=== PATIENT | female | born 1935 | race American Indian/Alaskan Native ===

== ENCOUNTER 2017-05-12 09:31 | Day surgery (SDC) | payer MEDICARE ==
[2017-05-12] MEDS ORDERED: NACL 0.9% 1000 ML 1,000 ML IV SCH (10:00)
[2017-05-12] MEDS ORDERED: WATER FOR IRRIG STERILE IR ONE (10:59)
[2017-05-12] MEDS ORDERED: DIPRIVAN 10 MG/ML IV ONE ×3 (11:02→11:43)
--- NOTE | 2017-05-12 11:04 | Short Stay Summary ---
Short Stay Documentation Date of service: 05/12/17 Narrative H&P: 81 year old presents for EGD for evaluation of dysphagia and GERD, and colonoscopy for evaluation of abdominal pain with a personal history of colon polyps. - History Principal diagnosis: dysphagia, GERD, abdominal pain, hx colon polyps Past Medical History: anemia, COPD, diabetes, heart failure, hypertension, stroke, other (required esophageal dilation in past, peptic ulcer, obesity) Past Surgical History: appendectomy, , Other (breast surgery) - Allergies and Medications Current Medications: Allergies ampicillin Allergy (Unverified 05/12/17 09:33) Rash Penicillins Allergy (Unverified 05/12/17 09:32) Hives Sulfa (Sulfonamide Antibiotics) Allergy (Unverified 05/12/17 09:32) Rash codeine Adverse Reaction (Unverified 05/12/17 09:32) Hives latex Adverse Reaction (Unverified 05/12/17 09:32) Hives morphine Adverse Reaction (Unverified 05/12/17 09:33) Hives Home Medications Medication Instructions Recorded Confirmed Last Taken Type Anastrozole (Nf) 1 mg PO DAILY 05/09/17 05/12/17 05/12/17 History AtorvaSTATin 40 mg PO DAILY 05/09/17 05/12/17 05/11/17 History Carvedilol 12.5 mg PO DAILY 05/09/17 05/12/17 05/12/17 History Chlorthalidone 25 mg PO DAILY 05/09/17 05/12/17 05/12/17 History Hydrocodon-Acetaminophn 10-325 1 tab PO PRN PRN 05/09/17 05/09/17 Unknown History Lisinopril 20 mg PO DAILY 05/09/17 05/12/17 05/12/17 History Nortriptyline 10 mg PO DAILY 05/09/17 05/09/17 Unknown History Omeprazole 20 mg PO DAILY 05/09/17 05/09/17 Unknown History Oxybutynin 3.9 mg TRANSDERMA Q4D 05/09/17 05/09/17 Unknown History amLODIPine 10 mg PO DAILY 05/09/17 05/12/17 05/12/17 History hydrALAZINE 50 mg PO DAILY 05/09/17 05/12/17 05/12/17 History traMADol 300 mg PO DAILY 05/09/17 05/09/17 Unknown History Active Medications Sodium Chloride (Nacl 0.9% 1000 Ml) 1,000 mls @ 50 mls/hr IV DIRECT COREY Last Admin: 05/12/17 11:00 Dose: 50 mls/hr - Physical exam General appearance: no acute distress, well-nourished Lungs: Clear to auscultation Heart: Regular rate, Normal S1, Normal S2 Gastrointestinal: normal, obese, other (nontender) Neurological: Normal speech - Hospital course Hospital course: Uneventful EGD with dilation and colonoscopy. - Disposition Condition at discharge: Good Disposition: DC-01 TO HOME OR SELFCARE - Discharge Diagnoses (1) Dysphagia Status: Acute (2) Gastric polyps Status: Acute Comment: polypoid masses, see report (3) Colon polyps Status: Acute (4) Diverticulosis Status: Acute (5) Internal hemorrhoids Status: Acute Short Stay Discharge Plan Activity: other (no driving today) Diet: other (may resume usual diet) Additional Instructions: 1. Patient to call for pathology results in 2 weeks if she has not heard from me by then. 2. First degree relatives (siblings and children) should be informed that colon polyps run in the family and that they should begin their colon screening at age 40 rather than age 50. Follow up with: JARAD MUNOZ MD [Primary Care Provider] - 7 Days
--- NOTE | 2017-05-12 12:02 | Operative Report ---
Operative Report Operative Report: Date of procedure: 05/12/2017 Preprocedure diagnosis: Dysphagia and abdominal pain, personal history colon polyps Post procedure diagnosis: Polypoid gastric masses, colon polyps, diverticulosis coli, angiodysplasia cecum, internal hemorrhoids Procedure name(s): 1. Esophagogastroduodenoscopy with biopsy 2. Esophageal dilation by bougienage 3. Colonoscopy with snare polypectomy Surgeon: Connor Millan MD Anesthesia: Monitored anesthesia care EBL: Less than 1-2 mL Procedure: The indications, techniques, potential complications and alternatives , had been discussed in full detail prior to the date of the exam, and once again on the day of the exam. Questions were encouraged and answered, and consent was thereby obtained. The patient was placed in the left lateral decubitus position, and was medicated by anesthesia services. See the anesthesia records for details. The tip of a [employer] video panendoscope was passed without difficulty through the pharynx and into the esophagus which appeared normal throughout its entire length. There was no evidence of stricture, ring, neoplasm, inflammation or extrinsic compression to account for symptoms of dysphagia. The instrument was advanced into the stomach and air was insufflated. The stomach distended well. The pylorus was patent and there was no retained content. There was a barely raised polypoid possibly submucosal lesion in the distal gastric body along the lesser curvature, and multiple prominent polypoid masses in the prepyloric antrum anteriorly. Both processes appeared grossly benign. See photographs. The instrument was advanced into the duodenum. No pathology was seen in the duodenal bulb or in the post bulbar duodenum to below the level of the ampulla. Retroflexion of the instrument in the stomach disclosed no additional pathology involving the lesser curvature, fundus or cardia. Multiple biopsies were obtained from the polypoid masses in the antrum, and biopsies were obtained from the raised lesion in the distal gastric body. There was no significant bleeding from any biopsy site. The instrument was then withdrawn with repeat examination of the stomach, esophagogastric junction and esophagus. There were no additional findings. A 50 Irish Degroot dilator was then passed empirically in view of symptoms. There was no resistance to dilator passage, and there was no blood on the dilator upon its removal. Both procedures were well tolerated. She was then placed in position for colonoscopy. The anal sphincter was digitally dilated. The digital exam was unremarkable. The tip of a pediatric [employer]in[employer] video colonoscope was inserted through the anal sphincter and into the rectal vault. It was then advanced proximally under continuous visualization of the lumen through a tortuous sigmoid colon but successfully to the cecum without difficulty. The prep was adequate. Along the way to the cecum, ascending millimeters sessile polyp was excised from the hepatic flexure with a cold snare and retrieved. Bleeding was minimal. Once in the cecum, landmarks were identified without difficulty. A small focus of nonbleeding angiodysplasia was noted in the cecum. The cecum otherwise appeared normal. The appendiceal orifice and ileocecal valve were identified and appeared normal. From the cecum, the instrument was slowly withdrawn with careful circumferential examination of the colonic mucosa. No pathology was seen in the ascending colon. Another polyp measuring 3 mm was excised from the hepatic flexure with a cold snare. There was no significant bleeding from the polypectomy site. Withdrawal of the instrument was continued. No pathology was seen in the transverse colon, splenic flexure or descending colon. A few diverticula were noted in the sigmoid. No additional polyps were found. The rectum appeared normal from the forward view. Retroflexion in the rectum revealed internal hemorrhoids. The instrument was fully withdrawn. The procedure was very well tolerated. Postprocedure she was monitored in the recovery area of the GI lab to ensure stability prior to her release. See the outpatient record for details regarding instructions to patient, medications and plans for follow-up. Final diagnosis: 1. 2 sessile polyps, 3 in 7 mm, hepatic flexure 2. Angiodysplasia, cecum, nonbleeding 3. Sigmoid diverticulosis 4. Internal hemorrhoids Connor Millan M.D. Dictated 05/12/2017 at 11:58 AM
[2017-05-12 12:46] VITALS: BP 136/64
--- NOTE | 2017-05-12 15:00 | Anesthesia Consultation ---
Anesthesia Consult and Med Hx Date of service: 05/12/17 - Airway ROM Head & Neck: Adequate Mental/Hyoid Distance: Adequate Mallampati Class: Class II Intubation Access Assessment: Probably Good - Pulmonary Exam CTA: Yes - Cardiac Exam Cardiac Exam: RRR - Pre-Operative Health Status ASA Pre-Surgery Classification: ASA3 Proposed Anesthetic Plan: MAC - Pulmonary COPD: Yes Hx Sleep Apnea: Yes - Cardiovascular System Hx Hypertension: Yes - Central Nervous System CVA: Yes (right sided weakness) - Gastrointestinal Hx Ulcer: Yes - Endocrine Hx Non-Insulin Dependent Diabetes: Yes - Hematic Hx Anemia: Yes - Other Systems Hx Obesity: Yes
--- NOTE | 2017-05-12 15:01 | Anesthesia Day of Surgery ---
Anesthesia Day of Surgery - Day of Surgery Patient Examined: Yes Patient H&P Reviewed: Yes Patient is NPO: Yes
--- NOTE | 2017-05-12 15:01 | Post Anesthesia Evaluation ---
- Post Anesthesia Evaluation Patient Participated: Yes Airway Patent: Yes Stable Respiratory Function: Yes Nausea/Vomiting: No Temp > 96.8F: Yes Pain Manageable: Yes Adequeate Hydration: Yes Anesthesia Complications: No
== END 2017-05-12 09:32 | disposition home or self-care (01) ==
LOC: GIO 09:31
PROVIDERS: ATTEND Internal Medicine Gastroenterology
DX: D12.3 Benign neoplasm of transverse colon (principal); K21.9 Gastro-esophageal reflux disease without esophagitis; K64.8 Other hemorrhoids; K63.5 Polyp of colon; I11.0 Hypertensive heart disease with heart failure; I50.9 Heart failure, unspecified; E11.9 Type 2 diabetes mellitus without complications; J44.9 Chronic obstructive pulmonary disease, unspecified; G47.30 Sleep apnea, unspecified; I69.951 Hemiplegia and hemiparesis following unspecified cerebrovascular disease affecting right dominant side; E66.9 Obesity, unspecified; Z86.010 Personal history of colon polyps; Z88.5 Allergy status to narcotic agent; Z88.2 Allergy status to sulfonamides; Z88.6 Allergy status to analgesic agent; Z88.1 Allergy status to other antibiotic agents; Z91.040 Latex allergy status; Z79.899 Other long term (current) drug therapy
CPT/HCPCS: 43239; 45385; 82962; 88305; 88342; J2704; J7030

== ENCOUNTER 2017-06-15 17:03 | Emergency (ER) | payer MEDICARE ==
--- NOTE | 2017-06-15 19:56 | XRay Report ---
FINAL REPORT EXAM: XR RIBS UNI W PA CHEST 3+V RT HISTORY: right rib pain r/t fall TECHNIQUE: Frontal chest x-ray. 5 views of right ribs. PRIORS: None. FINDINGS: Mild cardiomegaly, which may be due in part to portable technique. Lungs are normally expanded, with some increased interstitial markings centrally. No focal consolidation or apparent pneumothorax. No obvious or displaced right rib fracture. Degenerative change in the thoracic spine. IMPRESSION: 1. Findings which may represent pulmonary venous hypertension. 2. No other acute findings.
[2017-06-15 21:04] LABS: Hematocrit 39.2 % (30.3-42.9); Hemoglobin 12.5 gm/dl (10.1-14.3); Mean Corpuscular HGB Conc 32 % (30-34); Mean Corpuscular Volume 75 fl (79-97); Platelet Count 223 K/mm3 (140-440); Red Blood Count 5.25 M/mm3 (3.65-5.03); Red Cell Distribution Width 16.9 % (13.2-15.2)
[2017-06-15 21:08] LABS: Mean Corpuscular Hemoglobin 24 pg (28-32)
[2017-06-15 21:21] LABS: Calcium 9.4 mg/dL (8.4-10.2)
[2017-06-15] MEDS ORDERED: TORADOL IM ONE (23:38)
--- NOTE | 2017-06-15 23:43 | Emergency Department Report ---
HPI - General Chief Complaint: Fall Time Seen by Provider: 06/15/17 23:19 - HPI HPI: Room 5 The patient is a 81-year-old female presenting with a chief complaint of right rib pain. The patient states yesterday while in her kitchen her right knee gave out (this has happened several times since her stroke) causing her to fall to the ground. The patient states she struck her right ribs on her walker during the fall and this is cause significant pain along the ribs on the right. Patient states she heard a "crack" when she fell. Patient states it hurts to take a deep breath in. The patient gives her pain a score of 13/10 Location: Right ribs Duration: Constant since yesterday Quality: Pain Severity:13/10 Modifying factors: Inspiration causes pain Context: [see above] Mode of transportation: [not driving] ED Past Medical Hx - Past Medical History Hx Hypertension: Yes Hx CVA: Yes ([id number] weakness,uses walker) Hx Congestive Heart Failure: Yes Hx Diabetes: Yes Hx COPD: Yes Additional medical history: diabetic ulcers on bilateral lower legs-05/2017 - Surgical History Hx Appendectomy: Yes Hx Breast Surgery: Yes - Family History Family history: no significant - Social History Smoking Status: Never Smoker Substance Use Type: None - Medications Home Medications: Home Medications Medication Instructions Recorded Confirmed Last Taken Type Anastrozole (Nf) 1 mg PO DAILY 05/09/17 05/12/17 05/12/17 History AtorvaSTATin 40 mg PO DAILY 05/09/17 05/12/17 05/11/17 History Carvedilol 12.5 mg PO DAILY 05/09/17 05/12/17 05/12/17 History Chlorthalidone 25 mg PO DAILY 05/09/17 05/12/17 05/12/17 History Lisinopril 20 mg PO DAILY 05/09/17 05/12/17 05/12/17 History Nortriptyline 10 mg PO DAILY 05/09/17 05/09/17 Unknown History Omeprazole 20 mg PO DAILY 05/09/17 05/09/17 Unknown History Oxybutynin 3.9 mg TRANSDERMA Q4D 05/09/17 05/09/17 Unknown History amLODIPine 10 mg PO DAILY 05/09/17 05/12/17 05/12/17 History hydrALAZINE 50 mg PO DAILY 05/09/17 05/12/17 05/12/17 History traMADol 300 mg PO DAILY 05/09/17 05/09/17 Unknown History oxyCODONE /ACETAMINOPHEN [Percocet 1 - 2 tab PO Q6HR PRN #20 tablet 06/15/17 Unknown Rx 5/325] ED Review of Systems ROS: Stated complaint: FALL/RT SIDE PAIN Other details as noted in HPI Musculoskeletal: myalgia (rib pain) Physical Exam - Physical Exam Vital Signs: Vital Signs 06/15/17 17:35 Temperature 98.3 F Pulse Rate 64 Respiratory 18 Rate Blood Pressure 128/78 O2 Sat by Pulse 94 Oximetry Physical Exam: GENERAL: The patient is well-developed well-nourished female lying on stretcher not appearing to be in acute distress. [] HEENT: Normocephalic. Atraumatic. Extraocular motions are intact. Patient has moist mucous membranes. NECK: Supple. Trachea midline CHEST/LUNGS: Clear to auscultation. Breath sounds equal bilaterally. There is no respiratory distress noted. HEART/CARDIOVASCULAR: Regular. There is no tachycardia. There is no gallop rub or murmur. ABDOMEN: Abdomen is soft, nontender. Patient has normal bowel sounds. There is no abdominal distention. SKIN: There is no diaphoresis. Chronic appearing ulceration to the left emerson. NEURO: The patient is awake, alert, and oriented. The patient is cooperative. The patient has normal speech MUSCULOSKELETAL: There is tenderness along the right anterolateral ribs. No crepitus. No overlying ecchymosis ED Course Vital Signs 06/15/17 17:35 Temperature 98.3 F Pulse Rate 64 Respiratory 18 Rate Blood Pressure 128/78 O2 Sat by Pulse 94 Oximetry ED Medical Decision Making - Lab Data Result diagrams: 06/15/17 20:41 06/15/17 20:41 Laboratory Tests 06/15/17 06/15/17 06/15/17 20:41 20:41 22:55 WBC 14.0 H RBC 5.25 H Hgb 12.5 Hct 39.2 MCV 75 L MCH 24 L MCHC 32 RDW 16.9 H Plt Count 223 Sodium 139 Potassium 4.3 Chloride 99.3 Carbon Dioxide 27 Anion Gap 17 BUN 27 H Creatinine 1.2 Estimated GFR 52 BUN/Creatinine Ratio 23 Glucose 98 POC Glucose 264 H Calcium 9.4 - Radiology Data Radiology results: report reviewed (chest x-ray with right rib series), image reviewed (chest x-ray with right rib series) interpreted by me: chest x-ray with right rib series-no acute fractures, no pneumothorax [facility] [address] [place] [address] XRay Report Signed Patient: LISETTE PRICE MR#: [id number] : 1935 Acct:[id number] Age/Sex: 81 / F ADM Date: 06/15/17 Loc: ED Attending Dr: Ordering Physician: JULIOCESAR ZAVALA MD Date of Service: 06/15/17 Procedure(s): XR ribs UNI w PA Chest 3+V RT Accession Number(s): [id number] cc: JULIOCESAR ZAVALA MD Fluoro Time In Minutes: FINAL REPORT EXAM: XR RIBS UNI W PA CHEST 3+V RT HISTORY: right rib pain r/t fall TECHNIQUE: Frontal chest x-ray. 5 views of right ribs. PRIORS: None. FINDINGS: Mild cardiomegaly, which may be due in part to portable technique. Lungs are normally expanded, with some increased interstitial markings centrally. No focal consolidation or apparent pneumothorax. No obvious or displaced right rib fracture. Degenerative change in the thoracic spine. IMPRESSION: 1. Findings which may represent pulmonary venous hypertension. 2. No other acute findings. Transcribed By: [facility] Dictated By: JACK TAMEZ MD Electronically Authenticated By: JACK TAMEZ MD Signed Date/Time: 06/15/171950 DD/ 50 TD/TT: 06/15/171950 - Medical Decision Making The need for incentive spirometry or blowing up a balloon several times a day explained to the patient. - Differential Diagnosis acute rib fracture, bruised rib Critical care attestation.: If time is entered above; I have spent that time in minutes in the direct care of this critically ill patient, excluding procedure time. ED Disposition Clinical Impression: Rib pain on right side Disposition: DC-01 TO HOME OR SELFCARE Is pt being admited?: No Does the pt Need Aspirin: No Condition: Stable Instructions: Chest Pain (ED), Rib Fracture (ED) Additional Instructions: You should go to a medical supply store and obtain an incentive spirometer or blow up a balloon 4 times a day to promote full expansion of the lungs. Failure to do so may result in the development of a lung infection. Return to the emergency department immediately should you develop worsening symptoms, fever, inability to tolerate food or liquid or any other concerns. Prescriptions: oxyCODONE /ACETAMINOPHEN [Percocet 5/325] 1 - 2 tab PO Q6HR PRN #20 tablet PRN Reason: Pain Referrals: ROSAS LUTHER MD [Staff Physician] - 3-5 Days Time of Disposition: 23:50
[2017-06-16 00:39] VITALS: BP 177/85
== END 2017-06-16 00:25 | disposition home or self-care (01) ==
LOC: ED 17:03
DX: R07.81 Pleurodynia (principal); Z86.73 Personal history of transient ischemic attack (TIA), and cerebral infarction without residual deficits; I50.9 Heart failure, unspecified; E11.9 Type 2 diabetes mellitus without complications; J44.9 Chronic obstructive pulmonary disease, unspecified; W18.00XA Striking against unspecified object with subsequent fall, initial encounter; Y93.89 Activity, other specified; Y92.89 Other specified places as the place of occurrence of the external cause; Y99.8 Other external cause status
CPT/HCPCS: 36415; 71101; 80048; 82962; 85027; 96372; 99284; J1885

== ENCOUNTER 2017-06-17 08:50 | Outpatient (CLI) | payer MEDICARE ==
[2017-06-17] MEDS ORDERED: XYLOCAINE TOPICAL 4% TP ONE ×2 (10:10→10:42)
== END 2017-06-17 08:51 | disposition home or self-care (01) ==
LOC: WOUND 08:50
PROVIDERS: ATTEND Surgery
DX: E11.622 Type 2 diabetes mellitus with other skin ulcer (principal); L97.821 Non-pressure chronic ulcer of other part of left lower leg limited to breakdown of skin; L97.811 Non-pressure chronic ulcer of other part of right lower leg limited to breakdown of skin; I87.2 Venous insufficiency (chronic) (peripheral); I11.0 Hypertensive heart disease with heart failure; I50.9 Heart failure, unspecified; Z90.710 Acquired absence of both cervix and uterus; Z98.49 Cataract extraction status, unspecified eye; Z86.73 Personal history of transient ischemic attack (TIA), and cerebral infarction without residual deficits; Z85.3 Personal history of malignant neoplasm of breast
CPT/HCPCS: 11042; 11045; G0463

== ENCOUNTER 2017-06-20 12:44 | Outpatient (CLI) | payer MEDICARE ==
--- NOTE | 2017-06-25 11:16 | Vascular Lab Report ---
LOWER EXTREMITY VENOUS DUPLEX: REASON FOR EXAM: Pain and swelling of the lower extremities. COMMENTS ON THE RIGHT: All veins visualized are freely compressible without evidence of internal echogenicity. Flow is spontaneous and phasic throughout. A soft tissue change in the right knee area is consistent with a Bentley's cyst. COMMENTS ON THE LEFT: All veins visualized are freely compressible without evidence of internal echogenicity. Flow is spontaneous and phasic throughout. A soft tissue change in the left knee area is consistent with a Bentley's cyst. IMPRESSION: No evidence of acute or chronic deep venous thrombosis in either lower extremity. A soft tissue change in the right knee area is consistent with a Bentley's cyst. A soft tissue change in the left knee area is consistent with a Bentley's cyst.
--- NOTE | 2017-06-25 11:26 | Vascular Lab Report ---
LOWER EXTREMITY ARTERIAL DUPLEX: REASON FOR EXAM: Bilateral lower extremity ulcers. Study is technically limited by dressings distally. COMMENTS ON THE RIGHT: Biphasic waveforms are seen proximally. Monophasic waveforms are seen distally. Findings are consistent with multilevel arterial occlusive disease.. Scattered plaque is seen throughout. Findings are consistent with abnormal perfusion. Findings are not consistent with the ability to heal distal wounds. COMMENTS ON THE LEFT: Biphasic waveforms are seen proximally. Monophasic waveforms are seen distally. Multilevel arterial occlusive disease is identified. Scattered plaque is seen throughout. Findings are consistent with abnormal perfusion. Findings are not consistent with the ability to heal distal wounds. 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 There appears to be a component of aortoiliac inflow disease. Bandages obscured visualization of distal vessels. Consider further evaluation.
== END 2017-06-20 12:45 | disposition home or self-care (01) ==
LOC: VAS 12:44
PROVIDERS: ATTEND Surgery
DX: L97.929 Non-pressure chronic ulcer of unspecified part of left lower leg with unspecified severity (principal); L97.919 Non-pressure chronic ulcer of unspecified part of right lower leg with unspecified severity; M79.661 Pain in right lower leg; M79.662 Pain in left lower leg; M79.89 Other specified soft tissue disorders
CPT/HCPCS: 93925; 93970

== ENCOUNTER 2017-06-24 08:59 | Outpatient (CLI) | payer MEDICARE ==
[2017-06-24] MEDS ORDERED: XYLOCAINE TOPICAL 4% TP ONE ×2 (09:55)
== END 2017-06-24 09:00 | disposition home or self-care (01) ==
LOC: WOUND 08:59
PROVIDERS: ATTEND Surgery
DX: E11.622 Type 2 diabetes mellitus with other skin ulcer (principal); L97.821 Non-pressure chronic ulcer of other part of left lower leg limited to breakdown of skin; L97.811 Non-pressure chronic ulcer of other part of right lower leg limited to breakdown of skin; I87.2 Venous insufficiency (chronic) (peripheral); I11.0 Hypertensive heart disease with heart failure; I50.9 Heart failure, unspecified; Z86.73 Personal history of transient ischemic attack (TIA), and cerebral infarction without residual deficits; Z85.3 Personal history of malignant neoplasm of breast; Z98.49 Cataract extraction status, unspecified eye; Z90.710 Acquired absence of both cervix and uterus

== ENCOUNTER 2017-07-01 08:55 | Outpatient (CLI) | payer MEDICARE ==
[2017-07-01] MEDS ORDERED: XYLOCAINE TOPICAL 4% TP ONE ×2 (09:01→09:15)
== END 2017-07-01 08:56 | disposition home or self-care (01) ==
LOC: WOUND 08:55
PROVIDERS: ATTEND Surgery
DX: E11.622 Type 2 diabetes mellitus with other skin ulcer (principal); L97.821 Non-pressure chronic ulcer of other part of left lower leg limited to breakdown of skin; L97.811 Non-pressure chronic ulcer of other part of right lower leg limited to breakdown of skin; I87.2 Venous insufficiency (chronic) (peripheral); I11.0 Hypertensive heart disease with heart failure; I50.9 Heart failure, unspecified; Z86.73 Personal history of transient ischemic attack (TIA), and cerebral infarction without residual deficits; Z85.3 Personal history of malignant neoplasm of breast; Z98.49 Cataract extraction status, unspecified eye; Z90.710 Acquired absence of both cervix and uterus

== ENCOUNTER 2017-07-08 09:30 | Outpatient (CLI) | payer MEDICARE ==
[2017-07-08] MEDS ORDERED: XYLOCAINE TOPICAL 4% TP ONE ×2 (09:45→16:19)
[2017-07-08] MEDS ORDERED: AD OINTMENT TP ONE ×2 (10:16→10:20)
[2017-07-09] MEDS ORDERED: AD OINTMENT TP SCH (10:00)
== END 2017-07-08 09:31 | disposition home or self-care (01) ==
LOC: WOUND 09:30
PROVIDERS: ATTEND Surgery
DX: E11.622 Type 2 diabetes mellitus with other skin ulcer (principal); L97.222 Non-pressure chronic ulcer of left calf with fat layer exposed; L97.811 Non-pressure chronic ulcer of other part of right lower leg limited to breakdown of skin; I10 Essential (primary) hypertension; I11.0 Hypertensive heart disease with heart failure; I50.9 Heart failure, unspecified; I87.2 Venous insufficiency (chronic) (peripheral); Z98.49 Cataract extraction status, unspecified eye; Z90.710 Acquired absence of both cervix and uterus; Z86.73 Personal history of transient ischemic attack (TIA), and cerebral infarction without residual deficits; Z85.3 Personal history of malignant neoplasm of breast
CPT/HCPCS: A6250

== ENCOUNTER 2017-07-14 14:22 | Emergency (ER) | payer MEDICARE ==
[2017-07-14 15:59] LABS: Basophils # (Auto) 0.1 K/mm3 (0.0-0.1); Basophils % (Auto) 0.5 % (0.0-1.8); Eosinophils # (Auto) 0.2 K/mm3 (0.0-0.4); Eosinophils % (Auto) 1.4 % (0.0-4.3); Hematocrit 39.5 % (30.3-42.9); Hemoglobin 12.6 gm/dl (10.1-14.3); Lymphocytes # (Auto) 1.3 K/mm3 (1.2-5.4); Lymphocytes % (Auto) 11.4 % (13.4-35.0); Mean Corpuscular HGB Conc 32 % (30-34); Mean Corpuscular Hemoglobin 24 pg (28-32); Mean Corpuscular Volume 74 fl (79-97); Monocytes # (Auto) 0.6 K/mm3 (0.0-0.8); Platelet Count 226 K/mm3 (140-440); Red Blood Count 5.32 M/mm3 (3.65-5.03); Red Cell Distribution Width 16.9 % (13.2-15.2)
[2017-07-14 16:04] LABS: Bacteria,Urine 2+ /HPF (Negative); Bilirubin,Urine NEG (Negative); Blood,Urine NEG (Negative); Color,Urine Yellow (Yellow); Urobilinogen,Urine < 2.0 mg/dL (<2.0)
[2017-07-14 16:25] VITALS: BP 163/66
[2017-07-14 16:30] LABS: Calcium 9.1 mg/dL (8.4-10.2)
--- NOTE | 2017-07-14 17:44 | Emergency Department Report ---
HPI - General Chief Complaint: Hypoglycemia Time Seen by Provider: 07/14/17 16:30 - HPI HPI: The patient is a 81-year-old female who presents for evaluation of dizziness and low blood sugar. The patient states that while she was standing in the bank , approximately 30 minutes prior to arrival, she developed progressive dizziness and lightheadedness, severe, constant, exacerbated with position changes, and associated with generalized weakness. She admits to taking her insulin and not consuming sufficient amount of food today. The patient denies fever, head injury, headache, neck pain, neck stiffness, vision or hearing changes, smell or taste changes, paresthesias, facial drooping, slurred speech, seizure-like activity, urine or bowel incontinence or retention, or other focal neurological deficit. ED Past Medical Hx - Past Medical History Hx Hypertension: Yes Hx CVA: Yes ([id number] weakness,uses walker) Hx Congestive Heart Failure: Yes Hx Diabetes: Yes Hx COPD: Yes Additional medical history: diabetic ulcers on bilateral lower legs-05/2017 - Surgical History Hx Appendectomy: Yes Hx Breast Surgery: Yes - Social History Smoking Status: Never Smoker Substance Use Type: None - Medications Home Medications: Home Medications Medication Instructions Recorded Confirmed Last Taken Type Anastrozole (Nf) 1 mg PO DAILY 05/09/17 05/12/17 05/12/17 History AtorvaSTATin 40 mg PO DAILY 05/09/17 05/12/17 05/11/17 History Carvedilol 12.5 mg PO DAILY 05/09/17 05/12/17 05/12/17 History Chlorthalidone 25 mg PO DAILY 05/09/17 05/12/17 05/12/17 History Lisinopril 20 mg PO DAILY 05/09/17 05/12/17 05/12/17 History Nortriptyline 10 mg PO DAILY 05/09/17 05/09/17 Unknown History Omeprazole 20 mg PO DAILY 05/09/17 05/09/17 Unknown History Oxybutynin 3.9 mg TRANSDERMA Q4D 05/09/17 05/09/17 Unknown History amLODIPine 10 mg PO DAILY 05/09/17 05/12/17 05/12/17 History hydrALAZINE 50 mg PO DAILY 05/09/17 05/12/17 05/12/17 History traMADol 300 mg PO DAILY 05/09/17 05/09/17 Unknown History oxyCODONE /ACETAMINOPHEN [Percocet 1 - 2 tab PO Q6HR PRN #20 tablet 06/15/17 Unknown Rx 5/325] ED Review of Systems ROS: Stated complaint: LOW BLOOD SUGAR Other details as noted in HPI Constitutional: reports lightheadedness and weakness denies: fever ENT: denies: throat or neck pain Respiratory: denies: cough, shortness of breath Cardiovascular: denies: chest pain Endocrine: denies unexplained weight loss or gain Gastrointestinal: denies: abdominal pain, nausea Genitourinary: denies: dysuria Musculoskeletal: denies: leg swelling Skin: denies: rash Neurological: denies: headache Hematological/Lymphatic: denies: easy bleeding or easy bruising Psych: denies sadness or hopelessness Physical Exam - Physical Exam Vital Signs: Vital Signs 07/14/17 07/14/17 14:56 16:24 Temperature 97.1 F L Pulse Rate 90 85 Respiratory 18 18 Rate Blood Pressure 160/83 Blood Pressure 163/66 [Left] O2 Sat by Pulse 98 97 Oximetry Physical Exam: General: well-nourished, well-developed, no acute distress Head: Normocephalic, atraumatic Eyes: normal sclera ENT: Mucous membranes are pale and dry Neck: No neck stiffness, no cervical adenopathy Respiratory: Breath sounds equal bilaterally, no wheezing, rales, or rhonchi Cardio: S1 and S2 present, no murmurs, rubs, gallops, capillary refill is delayed Abdomen: Normoactive bowel sounds, soft abdomen, no rigidity, no guarding or rebound tenderness Chest WALL/Back: No tenderness to palpation of the chest wall, no CVA tenderness with percussion Musc: No pitting edema Skin: No rash Neuro: alert oriented x4, normal cognition, speech normal, PERRL, EOM intact, no facial drooping, no uvula or tongue deviation on protrusion, no deficit with rotation of neck or shoulder shrug, no obvious gross motor deficit in the upper or lower extremities, no obvious gross sensation deficit, 2+ symmetric reflexes on DTR testing, no coordination deficit with cjilrj-iy-zryy or fdtk-ku-bicn testing, Babinski downgoing, romberg negative, patient able to to ambulate without abnormal gait Psych: Normal affect ED Course Vital Signs 05/21/18 05/21/18 14:56 16:24 Temperature 97.1 F L Pulse Rate 90 85 Respiratory 18 18 Rate Blood Pressure 160/83 Blood Pressure 163/66 [Left] O2 Sat by Pulse 98 97 Oximetry ED Medical Decision Making - Lab Data Result diagrams: 07/14/17 15:33 07/14/17 15:33 - Medical Decision Making The patient was seen and examined by myself. The patient is placed on a cloth desizing range tender and continuous pulse ox. On initial evaluation, the patient was found to be in no distress, receiving normal saline fluid infusion. The normal saline fluid infusion was continued here. Evaluation orders were placed. The patient was given food and her blood sugar increased. The patient was monitored in the emergency department for greater than 2 hours with multiple Accu-Cheks, and blood sugar has maintained within normal limits throughout ED course. The patient was reevaluated and reported that her symptoms remained resolved. She remains without any neuro deficits on neuro exam. final accucheck reveals BS> 150. The patient is stable for discharge with outpatient follow-up. The patient is given follow-up and return instructions. The patient expressed understanding and agreed with the plan. The patient is discharged in stable condition. Critical care attestation.: If time is entered above; I have spent that time in minutes in the direct care of this critically ill patient, excluding procedure time. ED Disposition Clinical Impression: Hypoglycemia, Orthostatic dizziness, Dehydration Disposition: DC-01 TO HOME OR SELFCARE Is pt being admited?: No Does the pt Need Aspirin: No Condition: Stable Instructions: Diabetic Hypoglycemia (ED), Near Syncope (ED), Dizziness (ED) Referrals: PRIMARY CARE, [Primary Care Provider] - 3-5 Days Time of Disposition: 17:43
== END 2017-07-14 20:18 | disposition home or self-care (01) ==
LOC: ED 14:22
DX: E16.2 Hypoglycemia, unspecified (principal); R42 Dizziness and giddiness; E86.0 Dehydration; I11.0 Hypertensive heart disease with heart failure; I50.9 Heart failure, unspecified; E11.9 Type 2 diabetes mellitus without complications; J44.9 Chronic obstructive pulmonary disease, unspecified; Z86.73 Personal history of transient ischemic attack (TIA), and cerebral infarction without residual deficits; Z88.1 Allergy status to other antibiotic agents; Z88.0 Allergy status to penicillin; Z88.2 Allergy status to sulfonamides; Z88.5 Allergy status to narcotic agent
CPT/HCPCS: 36415; 80048; 81001; 82962; 85025; 99284

== ENCOUNTER 2017-07-15 09:20 | Outpatient (CLI) | payer MEDICARE ==
[2017-07-15] MEDS ORDERED: XYLOCAINE TOPICAL 4% TP ONE ×2 (09:21→09:24)
== END 2017-07-15 09:21 | disposition home or self-care (01) ==
LOC: WOUND 09:20
PROVIDERS: ATTEND Surgery
DX: E11.622 Type 2 diabetes mellitus with other skin ulcer (principal); L97.222 Non-pressure chronic ulcer of left calf with fat layer exposed; L97.811 Non-pressure chronic ulcer of other part of right lower leg limited to breakdown of skin; I11.0 Hypertensive heart disease with heart failure; I50.9 Heart failure, unspecified; I87.2 Venous insufficiency (chronic) (peripheral); Z98.49 Cataract extraction status, unspecified eye; Z90.710 Acquired absence of both cervix and uterus; Z86.73 Personal history of transient ischemic attack (TIA), and cerebral infarction without residual deficits; Z85.3 Personal history of malignant neoplasm of breast

== ENCOUNTER 2017-07-22 09:00 | Outpatient (CLI) | payer MEDICARE ==
[2017-07-22] MEDS ORDERED: XYLOCAINE TOPICAL 4% TP ONE (09:21)
== END 2017-07-22 09:01 | disposition home or self-care (01) ==
LOC: WOUND 09:00
PROVIDERS: ATTEND Surgery
DX: E11.622 Type 2 diabetes mellitus with other skin ulcer (principal); L97.222 Non-pressure chronic ulcer of left calf with fat layer exposed; L97.811 Non-pressure chronic ulcer of other part of right lower leg limited to breakdown of skin; I11.0 Hypertensive heart disease with heart failure; I50.9 Heart failure, unspecified; Z98.49 Cataract extraction status, unspecified eye; Z86.73 Personal history of transient ischemic attack (TIA), and cerebral infarction without residual deficits; Z85.3 Personal history of malignant neoplasm of breast; Z90.710 Acquired absence of both cervix and uterus

== ENCOUNTER 2017-08-01 08:45 | Outpatient (CLI) | payer MEDICARE ==
[2017-08-01] MEDS ORDERED: XYLOCAINE TOPICAL 4% TP ONE ×2 (09:18→09:24)
== END 2017-08-01 08:46 | disposition home or self-care (01) ==
LOC: WOUND 08:45
PROVIDERS: ATTEND Surgery
DX: E11.622 Type 2 diabetes mellitus with other skin ulcer (principal); L97.222 Non-pressure chronic ulcer of left calf with fat layer exposed; L97.811 Non-pressure chronic ulcer of other part of right lower leg limited to breakdown of skin; I11.0 Hypertensive heart disease with heart failure; I50.9 Heart failure, unspecified; Z98.49 Cataract extraction status, unspecified eye; Z86.73 Personal history of transient ischemic attack (TIA), and cerebral infarction without residual deficits; Z85.3 Personal history of malignant neoplasm of breast; Z90.710 Acquired absence of both cervix and uterus

== ENCOUNTER 2017-08-08 09:27 | Outpatient (CLI) | payer MEDICARE ==
[2017-08-08] MEDS ORDERED: XYLOCAINE TOPICAL 4% TP ONE (09:44)
== END 2017-08-08 09:28 | disposition home or self-care (01) ==
LOC: WOUND 09:27
PROVIDERS: ATTEND Surgery
DX: E11.622 Type 2 diabetes mellitus with other skin ulcer (principal); L97.222 Non-pressure chronic ulcer of left calf with fat layer exposed; L97.811 Non-pressure chronic ulcer of other part of right lower leg limited to breakdown of skin; I11.0 Hypertensive heart disease with heart failure; I50.9 Heart failure, unspecified; Z86.73 Personal history of transient ischemic attack (TIA), and cerebral infarction without residual deficits; Z98.49 Cataract extraction status, unspecified eye; Z90.710 Acquired absence of both cervix and uterus
CPT/HCPCS: 29580

== ENCOUNTER 2017-08-22 09:11 | Outpatient (CLI) | payer MEDICARE ==
[2017-08-22] MEDS ORDERED: XYLOCAINE TOPICAL 4% TP ONE ×2 (09:12→09:44)
== END 2017-08-22 09:12 | disposition home or self-care (01) ==
LOC: WOUND 09:11
PROVIDERS: ATTEND Surgery
DX: E11.622 Type 2 diabetes mellitus with other skin ulcer (principal); L97.222 Non-pressure chronic ulcer of left calf with fat layer exposed; L97.811 Non-pressure chronic ulcer of other part of right lower leg limited to breakdown of skin; I11.0 Hypertensive heart disease with heart failure; I50.9 Heart failure, unspecified; Z86.73 Personal history of transient ischemic attack (TIA), and cerebral infarction without residual deficits; Z98.49 Cataract extraction status, unspecified eye; Z90.710 Acquired absence of both cervix and uterus

== ENCOUNTER 2017-09-05 09:09 | Outpatient (CLI) | payer MEDICARE ==
[2017-09-05] MEDS ORDERED: XYLOCAINE TOPICAL 4% TP ONE ×3 (09:23→10:16)
== END 2017-09-05 09:10 | disposition home or self-care (01) ==
LOC: WOUND 09:09
PROVIDERS: ATTEND Surgery
DX: E11.622 Type 2 diabetes mellitus with other skin ulcer (principal); L97.811 Non-pressure chronic ulcer of other part of right lower leg limited to breakdown of skin; L97.222 Non-pressure chronic ulcer of left calf with fat layer exposed; I11.0 Hypertensive heart disease with heart failure; I50.9 Heart failure, unspecified; I87.2 Venous insufficiency (chronic) (peripheral); Z98.49 Cataract extraction status, unspecified eye; Z86.73 Personal history of transient ischemic attack (TIA), and cerebral infarction without residual deficits; Z85.3 Personal history of malignant neoplasm of breast; Z90.710 Acquired absence of both cervix and uterus
CPT/HCPCS: 29581

== ENCOUNTER 2017-09-12 09:04 | Outpatient (CLI) | payer MEDICARE ==
[2017-09-12] MEDS ORDERED: XYLOCAINE TOPICAL 4% TP ONE ×2 (09:20→09:33)
== END 2017-09-12 09:05 | disposition home or self-care (01) ==
LOC: WOUND 09:04
PROVIDERS: ATTEND Surgery
DX: E11.622 Type 2 diabetes mellitus with other skin ulcer (principal); L97.811 Non-pressure chronic ulcer of other part of right lower leg limited to breakdown of skin; L97.222 Non-pressure chronic ulcer of left calf with fat layer exposed; I11.0 Hypertensive heart disease with heart failure; I50.9 Heart failure, unspecified; I87.2 Venous insufficiency (chronic) (peripheral); Z98.49 Cataract extraction status, unspecified eye; Z86.73 Personal history of transient ischemic attack (TIA), and cerebral infarction without residual deficits; Z85.3 Personal history of malignant neoplasm of breast; Z90.710 Acquired absence of both cervix and uterus
CPT/HCPCS: 29581; 87075; 87076; 87116; 87186

== ENCOUNTER 2017-09-19 09:16 | Outpatient (CLI) | payer MEDICARE ==
[2017-09-19] MEDS ORDERED: XYLOCAINE TOPICAL 4% TP ONE ×2 (09:32→11:40)
[2017-09-19] MEDS ORDERED: AD OINTMENT TP ONE (10:27)
[2017-09-19] MEDS ORDERED: AD OINTMENT TP PRN (11:41)
== END 2017-09-19 09:17 | disposition home or self-care (01) ==
LOC: WOUND 09:16
PROVIDERS: ATTEND Surgery
DX: E11.622 Type 2 diabetes mellitus with other skin ulcer (principal); L97.811 Non-pressure chronic ulcer of other part of right lower leg limited to breakdown of skin; L97.222 Non-pressure chronic ulcer of left calf with fat layer exposed; I11.0 Hypertensive heart disease with heart failure; I50.9 Heart failure, unspecified; I87.2 Venous insufficiency (chronic) (peripheral); Z98.49 Cataract extraction status, unspecified eye; Z86.73 Personal history of transient ischemic attack (TIA), and cerebral infarction without residual deficits; Z85.3 Personal history of malignant neoplasm of breast; Z90.710 Acquired absence of both cervix and uterus
CPT/HCPCS: 29581; A6250

== ENCOUNTER 2017-09-26 09:06 | Outpatient (CLI) | payer MEDICARE ==
[2017-09-26] MEDS ORDERED: AD OINTMENT TP ONE (09:30)
[2017-09-26] MEDS ORDERED: XYLOCAINE TOPICAL 4% TP ONE ×2 (09:30→10:17)
[2017-09-26] MEDS ORDERED: AD OINTMENT TP PRN (10:18)
== END 2017-09-26 09:07 | disposition home or self-care (01) ==
LOC: WOUND 09:06
PROVIDERS: ATTEND Surgery
DX: E11.622 Type 2 diabetes mellitus with other skin ulcer (principal); L97.811 Non-pressure chronic ulcer of other part of right lower leg limited to breakdown of skin; L97.222 Non-pressure chronic ulcer of left calf with fat layer exposed; I11.0 Hypertensive heart disease with heart failure; I50.9 Heart failure, unspecified; I87.2 Venous insufficiency (chronic) (peripheral); Z98.49 Cataract extraction status, unspecified eye; Z86.73 Personal history of transient ischemic attack (TIA), and cerebral infarction without residual deficits; Z85.3 Personal history of malignant neoplasm of breast; Z90.710 Acquired absence of both cervix and uterus
CPT/HCPCS: 29581; A6250

== ENCOUNTER 2017-10-03 09:23 | Outpatient (CLI) | payer MEDICARE ==
[2017-10-03] MEDS ORDERED: XYLOCAINE TOPICAL 4% TP ONE ×2 (09:25→10:16)
== END 2017-10-03 09:24 | disposition home or self-care (01) ==
LOC: WOUND 09:23
PROVIDERS: ATTEND Surgery
DX: E11.622 Type 2 diabetes mellitus with other skin ulcer (principal); L97.811 Non-pressure chronic ulcer of other part of right lower leg limited to breakdown of skin; L97.222 Non-pressure chronic ulcer of left calf with fat layer exposed; I11.0 Hypertensive heart disease with heart failure; I50.9 Heart failure, unspecified; I87.2 Venous insufficiency (chronic) (peripheral); Z98.49 Cataract extraction status, unspecified eye; Z86.73 Personal history of transient ischemic attack (TIA), and cerebral infarction without residual deficits; Z85.3 Personal history of malignant neoplasm of breast; Z90.710 Acquired absence of both cervix and uterus

== ENCOUNTER 2017-10-10 09:25 | Outpatient (CLI) | payer MEDICARE ==
[2017-10-10] MEDS ORDERED: XYLOCAINE TOPICAL 4% TP ONE (09:43)
== END 2017-10-10 09:26 | disposition home or self-care (01) ==
LOC: WOUND 09:25
PROVIDERS: ATTEND Surgery
DX: E11.622 Type 2 diabetes mellitus with other skin ulcer (principal); L97.811 Non-pressure chronic ulcer of other part of right lower leg limited to breakdown of skin; L97.222 Non-pressure chronic ulcer of left calf with fat layer exposed; I11.0 Hypertensive heart disease with heart failure; I50.9 Heart failure, unspecified; I87.2 Venous insufficiency (chronic) (peripheral); Z98.49 Cataract extraction status, unspecified eye; Z86.73 Personal history of transient ischemic attack (TIA), and cerebral infarction without residual deficits; Z85.3 Personal history of malignant neoplasm of breast; Z90.710 Acquired absence of both cervix and uterus
CPT/HCPCS: 29581

== ENCOUNTER 2017-10-14 12:56 | Outpatient (CLI) | payer MEDICARE ==
[2017-10-14] MEDS ORDERED: AD OINTMENT TP ONE (13:24)
[2017-10-15] MEDS ORDERED: AD OINTMENT TP SCH (10:00)
== END 2017-10-14 12:57 | disposition home or self-care (01) ==
LOC: WOUND 12:56
PROVIDERS: ATTEND Surgery
DX: E11.622 Type 2 diabetes mellitus with other skin ulcer (principal); L97.811 Non-pressure chronic ulcer of other part of right lower leg limited to breakdown of skin; L97.222 Non-pressure chronic ulcer of left calf with fat layer exposed; I11.0 Hypertensive heart disease with heart failure; I50.9 Heart failure, unspecified; I87.2 Venous insufficiency (chronic) (peripheral); Z98.49 Cataract extraction status, unspecified eye; Z86.73 Personal history of transient ischemic attack (TIA), and cerebral infarction without residual deficits; Z85.3 Personal history of malignant neoplasm of breast; Z90.710 Acquired absence of both cervix and uterus
CPT/HCPCS: A6250

== ENCOUNTER 2017-10-31 09:11 | Outpatient (CLI) | payer MEDICARE ==
[2017-10-31] MEDS ORDERED: XYLOCAINE TOPICAL 4% TP ONE ×2 (09:16→09:42)
[2017-10-31] MEDS ORDERED: AD OINTMENT TP PRN (10:10)
== END 2017-10-31 09:12 | disposition home or self-care (01) ==
LOC: WOUND 09:11
PROVIDERS: ATTEND Surgery
DX: E11.622 Type 2 diabetes mellitus with other skin ulcer (principal); L97.811 Non-pressure chronic ulcer of other part of right lower leg limited to breakdown of skin; L97.222 Non-pressure chronic ulcer of left calf with fat layer exposed; I11.0 Hypertensive heart disease with heart failure; I50.9 Heart failure, unspecified; I87.2 Venous insufficiency (chronic) (peripheral); Z98.49 Cataract extraction status, unspecified eye; Z86.73 Personal history of transient ischemic attack (TIA), and cerebral infarction without residual deficits; Z85.3 Personal history of malignant neoplasm of breast; Z90.710 Acquired absence of both cervix and uterus
CPT/HCPCS: A6250

== ENCOUNTER 2017-11-04 13:43 | Outpatient (CLI) | payer MEDICARE ==
[2017-11-04] MEDS ORDERED: AD OINTMENT TP PRN (14:16)
== END 2017-11-04 13:44 | disposition home or self-care (01) ==
LOC: WOUND 13:43
PROVIDERS: ATTEND Surgery
DX: E11.622 Type 2 diabetes mellitus with other skin ulcer (principal); L97.811 Non-pressure chronic ulcer of other part of right lower leg limited to breakdown of skin; L97.222 Non-pressure chronic ulcer of left calf with fat layer exposed; I11.0 Hypertensive heart disease with heart failure; I50.9 Heart failure, unspecified; I87.2 Venous insufficiency (chronic) (peripheral); Z98.49 Cataract extraction status, unspecified eye; Z86.73 Personal history of transient ischemic attack (TIA), and cerebral infarction without residual deficits; Z85.3 Personal history of malignant neoplasm of breast; Z90.710 Acquired absence of both cervix and uterus
CPT/HCPCS: 29580

== ENCOUNTER 2017-11-07 09:02 | Outpatient (CLI) | payer MEDICARE ==
[2017-11-07] MEDS ORDERED: XYLOCAINE TOPICAL 4% TP ONE (09:15)
== END 2017-11-07 09:03 | disposition home or self-care (01) ==
LOC: WOUND 09:02
PROVIDERS: ATTEND Surgery
DX: E11.622 Type 2 diabetes mellitus with other skin ulcer (principal); L97.811 Non-pressure chronic ulcer of other part of right lower leg limited to breakdown of skin; L97.222 Non-pressure chronic ulcer of left calf with fat layer exposed; I11.0 Hypertensive heart disease with heart failure; I50.9 Heart failure, unspecified; I87.2 Venous insufficiency (chronic) (peripheral); Z98.49 Cataract extraction status, unspecified eye; Z86.73 Personal history of transient ischemic attack (TIA), and cerebral infarction without residual deficits; Z85.3 Personal history of malignant neoplasm of breast; Z90.710 Acquired absence of both cervix and uterus

== ENCOUNTER 2017-11-11 13:06 | Outpatient (CLI) | payer MEDICARE | END 2017-11-11 13:07 | disposition home or self-care (01) | LOC: WOUND 13:06 | PROVIDERS: ATTEND Surgery | DX: E11.622 Type 2 diabetes mellitus with other skin ulcer (principal); L97.811 Non-pressure chronic ulcer of other part of right lower leg limited to breakdown of skin; L97.222 Non-pressure chronic ulcer of left calf with fat layer exposed; I11.0 Hypertensive heart disease with heart failure; I50.9 Heart failure, unspecified; I87.2 Venous insufficiency (chronic) (peripheral); Z98.49 Cataract extraction status, unspecified eye; Z86.73 Personal history of transient ischemic attack (TIA), and cerebral infarction without residual deficits; Z85.3 Personal history of malignant neoplasm of breast; Z90.710 Acquired absence of both cervix and uterus ==

== ENCOUNTER 2017-11-14 09:08 | Outpatient (CLI) | payer MEDICARE ==
[2017-11-14] MEDS ORDERED: XYLOCAINE TOPICAL 4% TP ONE ×2 (09:26→09:55)
== END 2017-11-14 09:09 | disposition home or self-care (01) ==
LOC: WOUND 09:08
PROVIDERS: ATTEND Surgery
DX: E11.622 Type 2 diabetes mellitus with other skin ulcer (principal); L97.811 Non-pressure chronic ulcer of other part of right lower leg limited to breakdown of skin; L97.222 Non-pressure chronic ulcer of left calf with fat layer exposed; I11.0 Hypertensive heart disease with heart failure; I50.9 Heart failure, unspecified; I87.2 Venous insufficiency (chronic) (peripheral); Z98.49 Cataract extraction status, unspecified eye; Z86.73 Personal history of transient ischemic attack (TIA), and cerebral infarction without residual deficits; Z85.3 Personal history of malignant neoplasm of breast; Z90.710 Acquired absence of both cervix and uterus
CPT/HCPCS: 29580

== ENCOUNTER 2017-11-21 08:48 | Outpatient (CLI) | payer MEDICARE ==
[2017-11-21] MEDS ORDERED: XYLOCAINE TOPICAL 4% TP ONE ×2 (08:57→09:23)
== END 2017-11-21 08:49 | disposition home or self-care (01) ==
LOC: WOUND 08:48
PROVIDERS: ATTEND Surgery
DX: E11.622 Type 2 diabetes mellitus with other skin ulcer (principal); L97.811 Non-pressure chronic ulcer of other part of right lower leg limited to breakdown of skin; L97.222 Non-pressure chronic ulcer of left calf with fat layer exposed; I11.0 Hypertensive heart disease with heart failure; I50.9 Heart failure, unspecified; I87.2 Venous insufficiency (chronic) (peripheral); Z98.49 Cataract extraction status, unspecified eye; Z86.73 Personal history of transient ischemic attack (TIA), and cerebral infarction without residual deficits; Z85.3 Personal history of malignant neoplasm of breast; Z90.710 Acquired absence of both cervix and uterus
CPT/HCPCS: 29580; C5276

== ENCOUNTER 2017-11-28 09:02 | Outpatient (CLI) | payer MEDICARE ==
[2017-11-28] MEDS ORDERED: XYLOCAINE TOPICAL 4% TP ONE (09:09)
== END 2017-11-28 09:03 | disposition home or self-care (01) ==
LOC: WOUND 09:02
PROVIDERS: ATTEND Surgery
DX: E11.622 Type 2 diabetes mellitus with other skin ulcer (principal); L97.811 Non-pressure chronic ulcer of other part of right lower leg limited to breakdown of skin; L97.222 Non-pressure chronic ulcer of left calf with fat layer exposed; I11.0 Hypertensive heart disease with heart failure; I50.9 Heart failure, unspecified; I87.2 Venous insufficiency (chronic) (peripheral); Z98.49 Cataract extraction status, unspecified eye; Z86.73 Personal history of transient ischemic attack (TIA), and cerebral infarction without residual deficits; Z85.3 Personal history of malignant neoplasm of breast; Z90.710 Acquired absence of both cervix and uterus
CPT/HCPCS: 29580

== ENCOUNTER 2017-12-02 12:51 | Outpatient (CLI) | payer MEDICARE | END 2017-12-02 12:52 | disposition home or self-care (01) | LOC: WOUND 12:51 | PROVIDERS: ATTEND Surgery | DX: E11.622 Type 2 diabetes mellitus with other skin ulcer (principal); L97.222 Non-pressure chronic ulcer of left calf with fat layer exposed; L97.811 Non-pressure chronic ulcer of other part of right lower leg limited to breakdown of skin; I11.0 Hypertensive heart disease with heart failure; I50.9 Heart failure, unspecified; I87.2 Venous insufficiency (chronic) (peripheral); Z98.49 Cataract extraction status, unspecified eye; Z86.73 Personal history of transient ischemic attack (TIA), and cerebral infarction without residual deficits; Z85.3 Personal history of malignant neoplasm of breast; Z90.710 Acquired absence of both cervix and uterus | CPT/HCPCS: 29580 ==

== ENCOUNTER 2017-12-12 08:35 | Outpatient (CLI) | payer MEDICARE ==
[2017-12-12] MEDS ORDERED: AD OINTMENT TP ONE (08:46)
[2017-12-12] MEDS ORDERED: XYLOCAINE TOPICAL 4% TP ONE ×2 (08:46→09:10)
[2017-12-12] MEDS ORDERED: AD OINTMENT TP PRN (09:10)
[2017-12-12] MEDS ORDERED: DAKIN'S FULL STRENGTH ONE (09:42)
[2017-12-12] MEDS ORDERED: DAKIN'S FULL STRENGTH TP ONE (09:50)
== END 2017-12-12 08:36 | disposition home or self-care (01) ==
LOC: WOUND 08:35
PROVIDERS: ATTEND Surgery
DX: E11.622 Type 2 diabetes mellitus with other skin ulcer (principal); L97.222 Non-pressure chronic ulcer of left calf with fat layer exposed; I11.0 Hypertensive heart disease with heart failure; I50.9 Heart failure, unspecified; I87.2 Venous insufficiency (chronic) (peripheral); Z98.49 Cataract extraction status, unspecified eye; Z86.73 Personal history of transient ischemic attack (TIA), and cerebral infarction without residual deficits
CPT/HCPCS: 99214; A6250; G0463

== ENCOUNTER 2017-12-16 12:52 | Outpatient (CLI) | payer MEDICARE | END 2017-12-16 12:53 | disposition home or self-care (01) | LOC: WOUND 12:52 | PROVIDERS: ATTEND Surgery | DX: E11.622 Type 2 diabetes mellitus with other skin ulcer (principal); L97.222 Non-pressure chronic ulcer of left calf with fat layer exposed; I11.0 Hypertensive heart disease with heart failure; I50.9 Heart failure, unspecified; I87.2 Venous insufficiency (chronic) (peripheral); Z98.49 Cataract extraction status, unspecified eye; Z86.73 Personal history of transient ischemic attack (TIA), and cerebral infarction without residual deficits | CPT/HCPCS: 99214; G0463 ==

== ENCOUNTER 2018-02-20 08:34 | Outpatient (CLI) | payer MEDICARE ==
[2018-02-20] MEDS ORDERED: AD OINTMENT TP PRN (08:42)
[2018-02-20] MEDS ORDERED: XYLOCAINE TOPICAL 4% TP NR (08:42)
[2018-02-20] MEDS ORDERED: SILVER NITRATE TP NR (09:19)
== END 2018-02-20 08:35 | disposition home or self-care (01) ==
LOC: WOUND 08:34
PROVIDERS: ATTEND Surgery
DX: E11.622 Type 2 diabetes mellitus with other skin ulcer (principal); L97.222 Non-pressure chronic ulcer of left calf with fat layer exposed; I87.8 Other specified disorders of veins; I11.0 Hypertensive heart disease with heart failure; I50.9 Heart failure, unspecified; Z86.73 Personal history of transient ischemic attack (TIA), and cerebral infarction without residual deficits; Z85.3 Personal history of malignant neoplasm of breast; Z90.49 Acquired absence of other specified parts of digestive tract; Z98.49 Cataract extraction status, unspecified eye; Z90.710 Acquired absence of both cervix and uterus
CPT/HCPCS: A6250

== ENCOUNTER 2018-02-27 08:52 | Outpatient (CLI) | payer MEDICARE ==
[2018-02-27] MEDS ORDERED: AD OINTMENT TP PRN (09:12)
[2018-02-27] MEDS ORDERED: XYLOCAINE TOPICAL 4% TP ONE (09:12)
== END 2018-02-27 08:53 | disposition home or self-care (01) ==
LOC: WOUND 08:52
PROVIDERS: ATTEND Surgery
DX: E11.622 Type 2 diabetes mellitus with other skin ulcer (principal); L97.222 Non-pressure chronic ulcer of left calf with fat layer exposed; L97.811 Non-pressure chronic ulcer of other part of right lower leg limited to breakdown of skin; I11.0 Hypertensive heart disease with heart failure; I50.9 Heart failure, unspecified; I87.2 Venous insufficiency (chronic) (peripheral); Z85.3 Personal history of malignant neoplasm of breast; Z86.73 Personal history of transient ischemic attack (TIA), and cerebral infarction without residual deficits; Z90.710 Acquired absence of both cervix and uterus; Z98.49 Cataract extraction status, unspecified eye
CPT/HCPCS: A6250

== ENCOUNTER 2018-03-03 12:10 | Outpatient (CLI) | payer MEDICARE | END 2018-03-03 12:11 | disposition home or self-care (01) | LOC: WOUND 12:10 ==

== ENCOUNTER 2018-03-06 08:48 | Outpatient (CLI) | payer MEDICARE ==
[2018-03-06] MEDS ORDERED: XYLOCAINE TOPICAL 4% TP NR (08:56)
[2018-03-06] MEDS ORDERED: SILVER NITRATE TP ONE (10:00)
== END 2018-03-06 08:49 | disposition home or self-care (01) ==
LOC: WOUND 08:48
PROVIDERS: ATTEND Surgery
DX: E11.622 Type 2 diabetes mellitus with other skin ulcer (principal); L97.222 Non-pressure chronic ulcer of left calf with fat layer exposed; I11.0 Hypertensive heart disease with heart failure; I50.9 Heart failure, unspecified; Z98.49 Cataract extraction status, unspecified eye; Z86.73 Personal history of transient ischemic attack (TIA), and cerebral infarction without residual deficits; Z85.3 Personal history of malignant neoplasm of breast; Z90.710 Acquired absence of both cervix and uterus

== ENCOUNTER 2018-03-10 12:56 | Outpatient (CLI) | payer MEDICARE | END 2018-03-10 12:57 | disposition home or self-care (01) | LOC: WOUND 12:56 ==

== ENCOUNTER 2018-03-13 09:17 | Outpatient (CLI) | payer MEDICARE ==
[2018-03-13] MEDS ORDERED: XYLOCAINE TOPICAL 4% TP ONE (09:44)
[2018-03-13] MEDS ORDERED: SILVER NITRATE TP ONE (09:46)
== END 2018-03-13 09:18 | disposition home or self-care (01) ==
LOC: WOUND 09:17
PROVIDERS: ATTEND Surgery
DX: E11.622 Type 2 diabetes mellitus with other skin ulcer (principal); L97.222 Non-pressure chronic ulcer of left calf with fat layer exposed; I87.2 Venous insufficiency (chronic) (peripheral); I11.0 Hypertensive heart disease with heart failure; I50.9 Heart failure, unspecified; M19.90 Unspecified osteoarthritis, unspecified site; Z86.73 Personal history of transient ischemic attack (TIA), and cerebral infarction without residual deficits; Z85.3 Personal history of malignant neoplasm of breast; Z90.710 Acquired absence of both cervix and uterus; Z98.49 Cataract extraction status, unspecified eye

== ENCOUNTER 2018-03-17 13:06 | Outpatient (CLI) | payer MEDICARE | END 2018-03-17 13:07 | disposition home or self-care (01) | LOC: WOUND 13:06 ==

== ENCOUNTER 2018-03-27 09:21 | Outpatient (CLI) | payer MEDICARE ==
[2018-03-27] MEDS ORDERED: SILVER NITRATE TP ONE (09:46)
[2018-03-27] MEDS ORDERED: XYLOCAINE TOPICAL 2% 30ML TP ONE (09:46)
== END 2018-03-27 09:22 | disposition home or self-care (01) ==
LOC: WOUND 09:21
PROVIDERS: ATTEND Surgery
DX: E11.622 Type 2 diabetes mellitus with other skin ulcer (principal); L97.222 Non-pressure chronic ulcer of left calf with fat layer exposed; I11.0 Hypertensive heart disease with heart failure; I50.9 Heart failure, unspecified; I87.2 Venous insufficiency (chronic) (peripheral); Z85.3 Personal history of malignant neoplasm of breast; Z86.73 Personal history of transient ischemic attack (TIA), and cerebral infarction without residual deficits; Z98.49 Cataract extraction status, unspecified eye; Z90.710 Acquired absence of both cervix and uterus
CPT/HCPCS: 17250

== ENCOUNTER 2018-03-31 13:03 | Outpatient (CLI) | payer MEDICARE | END 2018-03-31 13:04 | disposition home or self-care (01) | LOC: WOUND 13:03 ==

== ENCOUNTER 2018-04-03 09:04 | Outpatient (CLI) | payer MEDICARE ==
[2018-04-03] MEDS ORDERED: SILVER NITRATE TP NR (09:23)
[2018-04-03] MEDS ORDERED: AD OINTMENT TP PRN (10:01)
== END 2018-04-03 09:05 | disposition home or self-care (01) ==
LOC: WOUND 09:04
PROVIDERS: ATTEND Surgery
DX: E11.622 Type 2 diabetes mellitus with other skin ulcer (principal); L97.222 Non-pressure chronic ulcer of left calf with fat layer exposed; L97.821 Non-pressure chronic ulcer of other part of left lower leg limited to breakdown of skin; I11.0 Hypertensive heart disease with heart failure; I50.9 Heart failure, unspecified; I87.2 Venous insufficiency (chronic) (peripheral); Z86.73 Personal history of transient ischemic attack (TIA), and cerebral infarction without residual deficits; Z85.3 Personal history of malignant neoplasm of breast; Z90.710 Acquired absence of both cervix and uterus; Z98.49 Cataract extraction status, unspecified eye
CPT/HCPCS: 17250; 29581; A6250

== ENCOUNTER 2018-04-07 12:40 | Outpatient (CLI) | payer MEDICARE | END 2018-04-07 12:41 | disposition home or self-care (01) | LOC: WOUND 12:40 ==

== ENCOUNTER 2018-04-14 12:36 | Outpatient (CLI) | payer MEDICARE | END 2018-04-14 12:37 | disposition home or self-care (01) | LOC: WOUND 12:36 ==

== ENCOUNTER 2018-04-17 09:07 | Outpatient (CLI) | payer MEDICARE ==
[2018-04-17] MEDS ORDERED: AD OINTMENT TP PRN (09:53)
[2018-04-17] MEDS ORDERED: XYLOCAINE TOPICAL 4% TP ONE (10:00)
[2018-04-17] MEDS ORDERED: SILVER NITRATE TP ONE (10:00)
== END 2018-04-17 09:08 | disposition home or self-care (01) ==
LOC: WOUND 09:07
PROVIDERS: ATTEND Surgery
DX: E11.622 Type 2 diabetes mellitus with other skin ulcer (principal); L97.222 Non-pressure chronic ulcer of left calf with fat layer exposed; I11.0 Hypertensive heart disease with heart failure; I50.9 Heart failure, unspecified; I87.2 Venous insufficiency (chronic) (peripheral); Z85.3 Personal history of malignant neoplasm of breast; Z86.73 Personal history of transient ischemic attack (TIA), and cerebral infarction without residual deficits; Z90.710 Acquired absence of both cervix and uterus; Z98.49 Cataract extraction status, unspecified eye
CPT/HCPCS: A6250

== ENCOUNTER 2018-04-21 12:36 | Outpatient (CLI) | payer MEDICARE | END 2018-04-21 12:37 | disposition home or self-care (01) | LOC: WOUND 12:36 ==

== ENCOUNTER 2018-04-24 09:00 | Outpatient (CLI) | payer MEDICARE ==
[2018-04-24] MEDS ORDERED: SILVER NITRATE TP ONE (09:13)
[2018-04-24] MEDS ORDERED: XYLOCAINE TOPICAL 4% TP ONE (09:13)
[2018-04-24] MEDS ORDERED: AD OINTMENT TP PRN (09:14)
== END 2018-04-24 09:01 | disposition home or self-care (01) ==
LOC: WOUND 09:00
PROVIDERS: ATTEND Surgery
DX: E11.622 Type 2 diabetes mellitus with other skin ulcer (principal); L97.222 Non-pressure chronic ulcer of left calf with fat layer exposed; I11.0 Hypertensive heart disease with heart failure; I50.9 Heart failure, unspecified; I87.2 Venous insufficiency (chronic) (peripheral); Z85.3 Personal history of malignant neoplasm of breast; Z86.73 Personal history of transient ischemic attack (TIA), and cerebral infarction without residual deficits; Z90.710 Acquired absence of both cervix and uterus; Z98.49 Cataract extraction status, unspecified eye

== ENCOUNTER 2018-05-01 08:58 | Outpatient (CLI) | payer MEDICARE ==
[2018-05-01] MEDS ORDERED: SILVER NITRATE TP ONE (10:00)
[2018-05-01] MEDS ORDERED: XYLOCAINE TOPICAL 4% TP ONE (10:00)
== END 2018-05-01 08:59 | disposition home or self-care (01) ==
LOC: WOUND 08:58
PROVIDERS: ATTEND Surgery
DX: E11.622 Type 2 diabetes mellitus with other skin ulcer (principal); L97.222 Non-pressure chronic ulcer of left calf with fat layer exposed; I87.2 Venous insufficiency (chronic) (peripheral); I11.0 Hypertensive heart disease with heart failure; I50.9 Heart failure, unspecified; Z85.3 Personal history of malignant neoplasm of breast; Z86.73 Personal history of transient ischemic attack (TIA), and cerebral infarction without residual deficits; Z90.710 Acquired absence of both cervix and uterus; Z98.49 Cataract extraction status, unspecified eye

== ENCOUNTER 2018-05-05 12:38 | Outpatient (CLI) | payer MEDICARE | END 2018-05-05 12:39 | disposition home or self-care (01) | LOC: WOUND 12:38 ==

== ENCOUNTER 2018-05-08 08:48 | Outpatient (CLI) | payer MEDICARE ==
[2018-05-08] MEDS ORDERED: XYLOCAINE TOPICAL 4% TP ONE (09:45)
[2018-05-08] MEDS ORDERED: AD OINTMENT TP SCH (10:00)
== END 2018-05-08 08:49 | disposition home or self-care (01) ==
LOC: WOUND 08:48
PROVIDERS: ATTEND Surgery
DX: E11.622 Type 2 diabetes mellitus with other skin ulcer (principal); L97.222 Non-pressure chronic ulcer of left calf with fat layer exposed; I87.2 Venous insufficiency (chronic) (peripheral); I11.0 Hypertensive heart disease with heart failure; I50.9 Heart failure, unspecified; Z85.3 Personal history of malignant neoplasm of breast; Z86.73 Personal history of transient ischemic attack (TIA), and cerebral infarction without residual deficits; Z98.49 Cataract extraction status, unspecified eye; Z90.710 Acquired absence of both cervix and uterus
CPT/HCPCS: A6250

== ENCOUNTER 2018-05-12 12:34 | Outpatient (CLI) | payer MEDICARE | END 2018-05-12 12:35 | disposition home or self-care (01) | LOC: WOUND 12:34 ==

== ENCOUNTER 2018-05-22 09:02 | Outpatient (CLI) | payer MEDICARE ==
[2018-05-22] MEDS ORDERED: XYLOCAINE TOPICAL 4% TP ONE (09:30)
== END 2018-05-22 09:03 | disposition home or self-care (01) ==
LOC: WOUND 09:02
PROVIDERS: ATTEND Surgery
DX: E11.622 Type 2 diabetes mellitus with other skin ulcer (principal); L97.222 Non-pressure chronic ulcer of left calf with fat layer exposed; I11.0 Hypertensive heart disease with heart failure; I50.9 Heart failure, unspecified; I87.2 Venous insufficiency (chronic) (peripheral); Z85.3 Personal history of malignant neoplasm of breast; Z86.73 Personal history of transient ischemic attack (TIA), and cerebral infarction without residual deficits; Z90.710 Acquired absence of both cervix and uterus; Z98.49 Cataract extraction status, unspecified eye

== ENCOUNTER 2018-05-26 12:22 | Outpatient (CLI) | payer MEDICARE | END 2018-05-26 12:23 | disposition home or self-care (01) | LOC: WOUND 12:22 | PROVIDERS: ATTEND Surgery | DX: E11.622 Type 2 diabetes mellitus with other skin ulcer (principal); L97.222 Non-pressure chronic ulcer of left calf with fat layer exposed; S81.801D Unspecified open wound, right lower leg, subsequent encounter; I11.0 Hypertensive heart disease with heart failure; I50.9 Heart failure, unspecified; I87.2 Venous insufficiency (chronic) (peripheral); Z85.3 Personal history of malignant neoplasm of breast; Z86.73 Personal history of transient ischemic attack (TIA), and cerebral infarction without residual deficits; Z90.49 Acquired absence of other specified parts of digestive tract; Z98.49 Cataract extraction status, unspecified eye; X58.XXXD Exposure to other specified factors, subsequent encounter ==

== ENCOUNTER 2018-05-29 08:55 | Outpatient (CLI) | payer MEDICARE ==
[2018-05-29] MEDS ORDERED: XYLOCAINE TOPICAL 4% TP ONE (09:25)
[2018-05-29] MEDS ORDERED: AD OINTMENT TP SCH (10:00)
== END 2018-05-29 08:56 | disposition home or self-care (01) ==
LOC: WOUND 08:55
PROVIDERS: ATTEND Surgery
DX: E11.622 Type 2 diabetes mellitus with other skin ulcer (principal); L97.222 Non-pressure chronic ulcer of left calf with fat layer exposed; S81.801D Unspecified open wound, right lower leg, subsequent encounter; I11.0 Hypertensive heart disease with heart failure; I50.9 Heart failure, unspecified; I87.2 Venous insufficiency (chronic) (peripheral); Z85.3 Personal history of malignant neoplasm of breast; Z86.73 Personal history of transient ischemic attack (TIA), and cerebral infarction without residual deficits; Z98.49 Cataract extraction status, unspecified eye; Z90.710 Acquired absence of both cervix and uterus; X58.XXXD Exposure to other specified factors, subsequent encounter
CPT/HCPCS: A6250

== ENCOUNTER 2018-06-26 08:22 | Outpatient (CLI) | payer MEDICARE ==
[2018-06-26] MEDS ORDERED: XYLOCAINE TOPICAL 4% TP ONE (09:15)
[2018-06-26] MEDS ORDERED: SILVER NITRATE TP NR (09:15)
[2018-06-26] MEDS ORDERED: SILVER NITRATE TP ONE (09:15)
== END 2018-06-26 08:23 | disposition home or self-care (01) ==
LOC: WOUND 08:22
PROVIDERS: ATTEND Surgery
DX: E11.622 Type 2 diabetes mellitus with other skin ulcer (principal); L97.222 Non-pressure chronic ulcer of left calf with fat layer exposed; L97.812 Non-pressure chronic ulcer of other part of right lower leg with fat layer exposed; I11.0 Hypertensive heart disease with heart failure; I50.9 Heart failure, unspecified; I87.2 Venous insufficiency (chronic) (peripheral); Z85.3 Personal history of malignant neoplasm of breast; Z86.73 Personal history of transient ischemic attack (TIA), and cerebral infarction without residual deficits; Z98.49 Cataract extraction status, unspecified eye; Z90.710 Acquired absence of both cervix and uterus

== ENCOUNTER 2018-06-30 13:15 | Outpatient (CLI) | payer MEDICARE | END 2018-06-30 13:16 | disposition home or self-care (01) | LOC: WOUND 13:15 | PROVIDERS: ATTEND Surgery | DX: E11.622 Type 2 diabetes mellitus with other skin ulcer (principal); L97.222 Non-pressure chronic ulcer of left calf with fat layer exposed; L97.811 Non-pressure chronic ulcer of other part of right lower leg limited to breakdown of skin; I11.0 Hypertensive heart disease with heart failure; I50.9 Heart failure, unspecified; I87.2 Venous insufficiency (chronic) (peripheral); Z86.73 Personal history of transient ischemic attack (TIA), and cerebral infarction without residual deficits; Z85.3 Personal history of malignant neoplasm of breast; Z98.49 Cataract extraction status, unspecified eye; Z90.710 Acquired absence of both cervix and uterus ==

== ENCOUNTER 2018-07-03 08:51 | Outpatient (CLI) | payer MEDICARE ==
[2018-07-03] MEDS ORDERED: XYLOCAINE TOPICAL 4% TP NR (10:00)
[2018-07-03] MEDS ORDERED: AD OINTMENT TP SCH (10:00)
== END 2018-07-03 08:52 | disposition home or self-care (01) ==
LOC: WOUND 08:51
PROVIDERS: ATTEND Surgery
DX: E11.622 Type 2 diabetes mellitus with other skin ulcer (principal); L97.222 Non-pressure chronic ulcer of left calf with fat layer exposed; L97.811 Non-pressure chronic ulcer of other part of right lower leg limited to breakdown of skin; I11.0 Hypertensive heart disease with heart failure; I50.9 Heart failure, unspecified; I87.2 Venous insufficiency (chronic) (peripheral); Z86.73 Personal history of transient ischemic attack (TIA), and cerebral infarction without residual deficits; Z85.3 Personal history of malignant neoplasm of breast; Z98.49 Cataract extraction status, unspecified eye; Z90.710 Acquired absence of both cervix and uterus
CPT/HCPCS: 17250; A6250

== ENCOUNTER 2018-07-07 13:00 | Outpatient (CLI) | payer MEDICARE | END 2018-07-07 13:01 | disposition home or self-care (01) | LOC: WOUND 13:00 | PROVIDERS: ATTEND Surgery | DX: E11.622 Type 2 diabetes mellitus with other skin ulcer (principal); L97.222 Non-pressure chronic ulcer of left calf with fat layer exposed; L97.811 Non-pressure chronic ulcer of other part of right lower leg limited to breakdown of skin; I11.0 Hypertensive heart disease with heart failure; I50.9 Heart failure, unspecified; I87.2 Venous insufficiency (chronic) (peripheral); Z86.73 Personal history of transient ischemic attack (TIA), and cerebral infarction without residual deficits; Z85.3 Personal history of malignant neoplasm of breast; Z98.49 Cataract extraction status, unspecified eye; Z90.710 Acquired absence of both cervix and uterus ==

== ENCOUNTER 2018-07-21 13:09 | Outpatient (CLI) | payer MEDICARE | END 2018-07-21 13:10 | disposition home or self-care (01) | LOC: WOUND 13:09 | PROVIDERS: ATTEND Surgery | DX: E11.622 Type 2 diabetes mellitus with other skin ulcer (principal); L97.222 Non-pressure chronic ulcer of left calf with fat layer exposed; L97.811 Non-pressure chronic ulcer of other part of right lower leg limited to breakdown of skin; I87.8 Other specified disorders of veins; I11.0 Hypertensive heart disease with heart failure; I50.9 Heart failure, unspecified; I87.2 Venous insufficiency (chronic) (peripheral); Z86.73 Personal history of transient ischemic attack (TIA), and cerebral infarction without residual deficits; Z85.3 Personal history of malignant neoplasm of breast; Z90.710 Acquired absence of both cervix and uterus; Z98.49 Cataract extraction status, unspecified eye ==

== ENCOUNTER 2018-07-24 08:50 | Outpatient (CLI) | payer MEDICARE | END 2018-07-24 08:51 | disposition home or self-care (01) | LOC: WOUND 08:50 | PROVIDERS: ATTEND Surgery | DX: E11.622 Type 2 diabetes mellitus with other skin ulcer (principal); L97.222 Non-pressure chronic ulcer of left calf with fat layer exposed; L97.811 Non-pressure chronic ulcer of other part of right lower leg limited to breakdown of skin; I87.8 Other specified disorders of veins; I11.0 Hypertensive heart disease with heart failure; I50.9 Heart failure, unspecified; I87.2 Venous insufficiency (chronic) (peripheral); Z86.73 Personal history of transient ischemic attack (TIA), and cerebral infarction without residual deficits; Z85.3 Personal history of malignant neoplasm of breast; Z90.710 Acquired absence of both cervix and uterus; Z98.49 Cataract extraction status, unspecified eye ==